=== PATIENT | male | born 1970 | race Caucasian/White ===

== ENCOUNTER 2017-03-05 18:51 | Emergency (ER) | payer SELFPAY ==
[~2017-03-05] VITALS: Ht 182.9 cm; Wt 72.6 kg
[~2017-03-05 18:51] MED LIST: FAMOTIDINE PO; HELIDAC PO; NO MEDICATIONS; NORVASC10 MG PO; PEPCID PO; PERCOCET5/325 PO; PERCOCET7.5 PO; PHENERGAN PO; PHENERGAN25 M1 PO; PRILOSEC PO; PRILOSEC20 MG; PRILOSEC40 MG PO; PROTONIX PO; REGLAN10 MG; ZESTRIL10 MG PO; ZOFRAN; ZOFRAN PO
== END 2017-03-05 19:30 | disposition left against medical advice (07) ==
LOC: SED 18:51
DX: Z53.21 Procedure and treatment not carried out due to patient leaving prior to being seen by health care provider (principal)